=== PATIENT | female | born 1990 | race Caucasian/White ===

== ENCOUNTER 2018-02-02 20:31 | Outpatient (CLI) | payer OTHER ==
[~2018-02-02] VITALS: Ht 167.6 cm; Wt 84.1 kg
[2018-02-02 21:12] VITALS: BP 136/88; PULSE 77; TEMP 98.3
[2018-02-02] MEDS ORDERED: PRENATAL MVI PO (21:15)
[2018-02-02 22:15] VITALS: BP 123/78; PULSE 64
[2018-02-02 23:21] VITALS: BP 130/81; PULSE 75
== END 2018-02-02 23:38 | disposition home or self-care (01) ==
LOC: LDRO 20:31
DX: O46.93 Antepartum hemorrhage, unspecified, third trimester (principal); Z3A.36 36 weeks gestation of pregnancy